=== PATIENT | male | born 1990 | race Caucasian/White ===

== ENCOUNTER 2019-01-01 17:15 | Emergency (ER) | payer OTHER ==
[2019-01-01] MEDS ORDERED: BOOSTRIX IM ONE (17:19)
--- NOTE | 2019-01-01 17:19 | Emergency Department Report ---
Blank Doc - Documentation Documentation: This is a 28-year-old male that presents with foreign body senastion to right hand s/p working with wood. Denies UTD with tetanus. Chery translation present during exam and interview This initial assessment/diagnostic orders/clinical plan/treatment(s) is/are subject to change based on patient's health status, clinical progression and re- assessment by fellow clinical providers in the ED. Further treatment and workup at subsequent clinical providers discretion. Patient/guardians urged not to elope from the ED as their condition may be serious if not clinically assessed and managed. Initial orders include: 1- Patient sent to [facility] for further evaluation and treatment 2- tetanus 3- xray
[2019-01-01 17:20] VITALS: BP 146/88
[2019-01-01] MEDS ORDERED: ANCEF IM ONE (17:52)
[2019-01-01] MEDS ORDERED: NACL 0.9% IR ONE (17:52)
--- NOTE | 2019-01-01 17:53 | Emergency Department Report ---
Abscess Boil HPI - HPI Chief Complaint: Skin/Abscess/Foreign Body Stated Complaint: WOOD STUCK IN HAND Time Seen by Provider: 01/01/19 17:17 Duration: Today Location: Upper Extremity Severity: Mild History: Yes Pain, Yes Foreign Body, No Fever, No Purulent Drainage, No Numbness, No Previous History, No Insect Bite HPI: She is a pleasant 28-year-old male comes to the ER complaining of a foreign body being in his hand. He states that he was working with wood outside and somehow slipped and he saw a piece of wood enter his hand. With the help with the security advisor was able to isolate and cleaning Nakina it well with the patient and removed the wood without difficulty Home Medications: Previous Rx's Medication Instructions Recorded Last Taken Type cephALEXin [Keflex] 500 mg PO Q12HR #20 cap 01/01/19 Unknown Rx Allergies/Adverse Reactions: Allergies Allergy/AdvReac Type Severity Reaction Status Date / Time No Known Allergies Allergy Unverified 01/01/19 17:17 ED Review of Systems ROS: Stated complaint: WOOD STUCK IN HAND Other details as noted in HPI Comment: All other systems reviewed and negative ED Past Medical Hx - Past Medical History Previous Medical History?: No - Surgical History Past Surgical History?: No - Family History Family history: no significant - Social History Smoking Status: Never Smoker - Medications Home Medications: Home Medications Medication Instructions Recorded Confirmed Last Taken Type cephALEXin [Keflex] 500 mg PO Q12HR #20 cap 01/01/19 Unknown Rx ED Abscess Boil Physical Exam - Exam General: Vital signs noted. No distress. Alert and acting appropriately. Exam: Yes Tenderness, Yes Normal Neurologic Exam, Yes Normal Circulation, No Fluctuance, No Surrounding Cellulites/Erythema, No Lymphangitis, No Crepitation, No Heart Murmur ED Course Vital Signs 01/01/19 17:18 Temperature 98.1 F Pulse Rate 82 Respiratory 16 Rate Blood Pressure 146/88 O2 Sat by Pulse 100 Oximetry Critical care attestation.: If time is entered above; I have spent that time in minutes in the direct care of this critically ill patient, excluding procedure time. ED Medical Decision Making - Radiology Data Radiology results: report reviewed, image reviewed - Medical Decision Making XRAY NOTED TDAP GIVEN ANCEF IM RX FOR PAIN HAND SOAKED AND CLEANED WOUND CARE PER PROCEDURE SECTION DC HOME WITH DC PLAN OF CARE NEUROVASC INTACT ON DC- ULNAR, MEDIAL AND RADIAL NERVE INTACT. RAPID CAP REFILL. RADIAL AND ULNAR PULSES NORMAL Vital Signs 01/01/19 01/01/19 17:18 18:14 Temperature 98.1 F Pulse Rate 82 Respiratory 16 18 Rate Blood Pressure 146/88 O2 Sat by Pulse 100 Oximetry - Differential Diagnosis RO FX; FB SOFT TISSUE ED Disposition Clinical Impression: Soft tissues foreign body Disposition: DC-01 TO HOME OR SELFCARE Is pt being admited?: No Does the pt Need Aspirin: No Condition: Stable Instructions: Soft Tissue Foreign Body (ED) Additional Instructions: DIET TOLERATED MEDS ORDERED TODAY IN ER FOLLOW UP PCP WITHIN 48 HOURS TO ENSURE YOU ARE GETTING BETTER REFERRALS HAVE BEEN GIVEN BELOW ACTIVITY TOLERATED MOTRIN OR TYLENOL FOR PAIN OR FEVER RETURN TO THE ER FOR WORSENING SYMPTOMS. WE DO NOT DIG TO GET FOREIGN BODY OUT. WITH TIME IT WILL PUSH ITSELF OUT THE WOUND HEALS. KEEP CLEAN WITH SOAP AND WATER. APPLY OVER THE COUNTER NEOSPORIN EVERY DAY. KEEP WOUND COVERED TO PREVENT INFECTION Prescriptions: cephALEXin [Keflex] 500 mg PO Q12HR #20 cap Referrals: [facility] [Outside] - 3-5 Days Time of Disposition: 18:16 - Laceration /Wound Repair HAND Wound Location: upper extremity Wound Length (cm): 2 Wound Explored: foreign body removed Irrigated w/ Saline (ccs): 100 Betadine Prep?: Yes Anesthesia: 1% Lidocaine Volume Anesthetic (ccs): 3 Wound Debrided: minimal Sterile Dressing Applied?: Yes Progress: AREA CLEANED LIDOCAINE TO ANESTHETIZE THE AREA INCISION MADE AT WOUND WOUND EXPLORED LARGE 2 INCH PIECE OF WOOD REMOVED WOUND ALLOWED TO REMAIN OPEN WOUND CLEANED AND DRESSED MEAL MILLER USED TO PROVIDE DC INSTRUCTIONS.
[2019-01-01] MEDS ORDERED: NORCO 5/325 PO ONE (18:01)
--- NOTE | 2019-01-01 18:01 | XRay Report ---
PROCEDURE: XR HAND 3+V RT TECHNIQUE: Right hand 3 views HISTORY: right hand pain COMPARISONS: FINDINGS: No acute fracture identified. No dislocation seen. Joint spaces are within normal limits. No radiopaq ue foreign bodies are observed. IMPRESSION: Negative hand series. This document is electronically signed by Luis Gallo MD., Jan 01 2019 05:59:13 PM ET
[2019-01-01] MEDS ORDERED: TRIPLE ANTIBIOTIC TP ONE ×2 (18:28→18:43)
== END 2019-01-01 18:44 | disposition home or self-care (01) ==
LOC: ED 17:15
DX: M79.5 Residual foreign body in soft tissue (principal)
CPT/HCPCS: 10120; 73130; 90471; 90715; 96372; 99283; J0690; A6250